=== PATIENT | female | born 2000 | race African-American/Black ===

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

== ENCOUNTER → 2019-04-29 07:59 | Outpatient (CLI) | payer OTHER, SELFPAY ==
--- NOTE | 2019-04-29 08:02 | RAD_ITS ---
PROCEDURE: SMALL BOWEL SERIES DATE OF EXAMINATION: April 29, 2019. INDICATION: Female, 18 years old. Intermittent bloody stool. PHYSICIAN: David Blanco M.D. FLUOROSCOPY TIME (if supplied): (0:13) minutes/seconds TECHNIQUE: Radiographic and fluoroscopic images were taken of the small intestine following the ingestion of barium. COMPARISON: None. FINDINGS: A preliminary supine KUB was obtained. There is an unremarkable bowel gas pattern. Fecal material is present throughout the colon. Phleboliths are present within the pelvis. The lung bases are unremarkable. The osseous structures are normal. The patient orally ingested approximately 12 ounces of thin barium Normal visualized fundus, body, and antrum of the stomach. Normal duodenal bulb, C-loop, and proximal jejunum. Normal visualized mucosal folds of the jejunum and ileum. There are no demonstrated dilatations, strictures, or masses of the small intestine. There is no mass displacement of the loops of small intestine. There is a normal motor pattern with barium reaching the colon within approximately 60 minutes. Spot films under fluoroscopic observation demonstrated a normal terminal ileum and ileocecal valve. RAD/Small Bowel Series Only IMPRESSION: Normal small bowel series. Electronically Signed: David Blanco, at 12:06 EST , Service support ,
== END ==
PROVIDERS: PCP Family Medicine; Referring Provider Nurse Practitioner Adult Health; Visit Provider Nurse Practitioner Adult Health
DX: K62.5 Hemorrhage of anus and rectum (principal); Z83.79 Family history of other diseases of the digestive system
CPT/HCPCS: 74250

== ENCOUNTER → 2019-05-01 15:05 | Outpatient (CLI) | payer OTHER, SELFPAY ==
[2019-05-01 14:37] VITALS: BMI 28.1
[2019-05-07 14:04] LABS: Calprotectin, Stool 181 ug/g (0-120)
== END ==
PROVIDERS: PCP Family Medicine; Referring Provider Surgery; Visit Provider Surgery
DX: K62.5 Hemorrhage of anus and rectum (principal); Z83.79 Family history of other diseases of the digestive system
CPT/HCPCS: 83993

== ENCOUNTER 2019-05-09 09:38 | Day surgery (SDC) | payer OTHER, SELFPAY ==
[2019-05-01 14:37] VITALS: BMI 28.1
--- NOTE | 2019-05-05 09:08 | HP_ITS ---
Intake Vital Signs 05/01/19 BMI 28.1 05/01/19 Height 5 ft 7 in 05/01/19 Weight: 200 lb 3 oz 05/01/19 BMI 31.3 05/01/19 BP 113/72 05/01/19 Blood Pressure Location Rt brachial 05/01/19 Position Sitting 05/01/19 Respiration 18 05/01/19 Pulse 60 05/01/19 Pulse Oximetry (%) 100 Intake Visit Reasons: blood in stool, referral from jae maynard Chief Complaint: rectal bleeding, fam hx crohns Consultant Internship Required: No Is patient in pain?: No Allergies No Known Allergies Allergy (Verified 05/01/19 14:36) Medications ferrous sulfate 325 mg (65 mg iron) tablet PO 05/01/19 [History Confirmed 05/01/19] polyethylene glycol 3350 17 gram/dose oral powder PO 05/01/19 [History Confirmed 05/01/19] Is last menstrual period known: No Post menopausal: No Patient : No PFSH Medical History (Updated 05/01/19 @ 14:34 by Abby Contreras) Blood in stool (Acute) Surgical History (Updated 05/01/19 @ 14:34 by Abby Contreras) History of tonsillectomy (Acute) Family History (Updated 05/01/19 @ 14:34 by Abby Contreras) Grandfather Colon cancer Grandmother Crohn disease Uncle Crohn disease Social History (Updated 05/05/19 @ 09:[address] Deepak Anguiano MD) Smoking Status: Never smoker HPI HPI HPI: CHANEL FELIX, is a 18 F who presents to the office today for HPI HPI Surgical H&P: Yes HPI: CHANEL FELIX, is a 18 F who presents to the office today for Colonoscopy. The patient was referred by GI from [facility]. The patient has been experiencing bloody stools and alternating constipation and diarrhea and she does have a family history of inflammatory bowel disease. She says that she has blood daily for the last 3 months and that for the last 3 years she has been having issues. She does have a history of C. difficile as well. ROS General General: No weight change, appetite, fatigue, colon cancer, breast cancer or weakness HEENT HEENT: No difficulty swallowing, eye injury, eye surgery, swollen glands or hoarseness Endo Endocrine: No thyroid disease, diabetes mellitus, thyroid cancer, Hair loss, heat intolerance or cold intolerance Cardio Cardiovascular: No murmur, pacemaker, heart disease, atrial fibrillation, high blood pressure, heart attack, heart stent, palpitations, shortness of breat with exertion or chest pain Resp Respiratory: No shortness of breath, No sleep apnea, No cough, No COPD, No asthma, No emphysema, No wheezing Gastro Gastrointestinal: No abdominal pain, No nausea or vomiting, No diarrhea, Yes constipation, Yes blood in stool, No acid reflux, No hemorrhoids, No ulcers, No gallbladder problem, No black,tarry stools Vinicio Hematologic: No blood thinners, No blood disorders, No bleeding, No anemia, No blood clots Neuro Neurologic: No weakness Exam Const General: cooperative Orientation: alert, oriented x3 Resp Effort & Inspection: normal respiratory effort Auscultation: clear to auscultation bilaterally Cardio Rate: regular rate Rhythm: regular rhythm Heart Sounds: no murmurs GI Inspection: non-distended Palpation: soft, nontender Assessment & Plan Problems 1. Bloody stool K92.1 Plan The patient is having bloody stools and does have a family history of inflammatory bowel disease. I did offer her colonoscopy but I stated that any further treatment would have to be done by a GI doctor. I also ordered a calprotectin stool study. I explained endoscopy in detail to the patient. I explained the risks including but not limited to stroke or heart attack with anesthesia, perforation of the GI tract, bleeding, infection. I explained that any of these could necessitate further emergency surgery. The patient understands and all questions were answered sufficiently. The patient wishes to proceed with procedure. Deepak Anguiano MD Pager: [facility] [address] [place] [address], [address] [place] [address] Office: Orders Orders: Calprotectin, Stool 05/01/19 K62.5, Z83.79 Colonoscopy Today K92.1 Coding Level of Care Code Off vis,new,level 3 Diagnoses Bloody stool K92.1 05/05/19 0908 <Electronically signed by Deepak mendiola MD> Date _ Deepak Anguiano MD I have re-examined the patient. There are no clinical changes since date of exam.
[2019-05-09] VITALS (7 sets, daily range): BP systolic 113–129; BP diastolic 55–79; PULSE 59–65; RESP 16; TEMP 36–36.9; O2SAT 100; BMI 30.9
--- NOTE | 2019-05-09 | IMM_PTH ---
PATIENT: CHANEL FELIX LOC: EN U#:[id number] AGE/SX: 18/F ROOM: RE05/09/[address]: Dr. Deepak Anguiano MD : 2000 BED: DIS: 05/09/2019 SPEC #: [id number] RECD: 05/12/19 12:04 STATUS: HUSSEIN RELes #: [id number] GABRIELLA: 05/09/19 00:[address]: Deepak Anguiano DEPT: IMMUNOHISTOCHEMISTRY RECD BY: Halima Morel ENTERED: 05/12/19 12:05 SP TYPE: IMMUNO OTHR DR: Dr. Ronnie Spencer MD Tissues: A - Ileum, NOS Procedures: BCL-2 (add) CD138 (add) CD20 (add) CD45 (add) CD5 (add) CD79A (add) CD3 (initial) PHYSICIAN & INSTITUTION [place] [id number] SPECIMEN INFORMATION: Tissue Source: A - Terminal ileum biopsy Clinical Info: Bloody stool Specimen Number: [id number] CPT code: 71857, 83968 x6 METHODOLOGY: Deparaffinized sections of prefer/formalin-fixed tissue or PAP/DQ stained slides are incubated with monoclonal/polyclonal antibodies/oligonucleotide probes. Localization is made via biotin free immunoperoxidase method. Appropriate controls are performed and reacted as expected. Results on target cell population are indicated in the following table: RESULTS: ANTIBODY / CLONE RESULT Block A CD3 (PS1) positive CD5 (SP10) positive CD20 (L26) positive CD79a (11E3) positive CD45 (RP2/18) positive CD138 (B-A38) negative BCL-2 (bcl-2/100/D5) negative These tests were developed and their performance characteristics determined by [facility]. They may not have been cleared or approved by the U.S. Food and Drug Administration. The FDA has determined that such clearance or approval is not necessary. The above immunohistochemical/dualISH markers are ordered and reviewed by the Pathologist. INTERPRETATION: A. Terminal ileum, biopsy: Polytypic (benign) lymphoid aggregate. AM:chase 05/13/19
[2019-05-09] MEDS: Lactated Ringers 1,000 ML 100 ML IV (10:39)
[2019-05-09 10:44] LABS: Internal QC Validated? YES +Cl - CLEAR BKGD; Pregnancy, Urine Negative Negative
--- NOTE | 2019-05-09 11:15 | COLBX_PTH ---
PATIENT: CHANEL FELIX LOC: EN U#:[id number] AGE/SX: 18/F ROOM: RE05/09/[address]: Dr. Deepak Anguiano MD : 2000 BED: DIS: 05/09/2019 SPEC #: [id number] RECD: 05/09/19 13:30 STATUS: HUSSEIN TAVO #: [id number] GABRIELLA: 05/09/19 11:[address]: Deepak Anguiano DEPT: SURGICAL PATHOLOGY RECD BY: Anamika Goldstein ENTERED: 05/09/19 14:15 SP TYPE: COLON BX OTHR DR: Dr. Ronnie Spencer MD Tissues: A - Ileum, NOS B - COLON BIOPSY C - Rectum, NOS Procedures: Surgery Specimen Level IV HEADER OPERATION: Colonoscopy (MAC) PRE-OP DIAGNOSIS: Bloody stool TISSUE SUBMITTED: A - Terminal ileum biopsy, B - Random colonic biopsy, C - Rectal biopsy MICROSCOPIC DIAGNOSIS A. Terminal ileum, biopsy: Prominent benign lymphoid aggregates. See comment. B. Colon, random biopsy: No pathologic change. C. Rectum, biopsy: Mild active colitis. See comment. AM:chase 05/12/19 COMMENT A. Immunohistochemistry ([id number]) supports the above diagnosis. C. Sections show scattered cryptitis, crypt abscesses and glandular distortion is not identified. Prominent lymphoid aggregates are present; however, transmural lymphoid aggregates are not seen. No fissuring ulcers are identified and no granulomas are noted. Clinical correlation is suggested. MICROSCOPIC DESCRIPTION Slides are reviewed. GROSS DESCRIPTION A - Received in fixative is one container labeled with the patient's name and designated terminal ileum. The specimen consists of multiple irregular fragments of light patrick soft tissue that in aggregate measure 1 x 0.8 x 0.1 cm. The specimen is totally submitted in one cassette. B - Received in fixative is one container labeled with the patient's name and designated random colon biopsy. The specimen consists of multiple irregular fragments of light patrick soft tissue that in aggregate measure 2 x 1 x <0.1 cm. The specimen is totally submitted in one cassette. C - Received in fixative is one container labeled with the patient's name and designated rectal biopsy. The specimen consists of multiple irregular fragments of light patrick soft tissue that in aggregate measure 1 x 1 x 0.1 cm. The specimen is totally submitted in one cassette. / AM:chase 05/09/19 TC:2 CPT: 04389 x3
--- NOTE | 2019-05-09 12:51 | OP.CCLET_ITS ---
05/09/2019 Melita Licea [address] [place] [address] Re : Colonoscopy procedure for Svetlana Anant Dear Dr. Licea This procedure was performed on Thursday, May 09, 2019. My impressions and recommendations are as follows: Impressions : - Ulcerated mucosa in the rectum. Biopsied. - Biopsies were taken with a cold forceps for histology in the entire colon and in the terminal ileum. Recommendations : - Discharge patient to home. - Resume previous diet. - Continue present medications. - Await pathology results. - Repeat colonoscopy for surveillance based on pathology results. My findings are described in the full procedure note, which is enclosed. If I can be of further assistance, please feel free to contact me at Doctor phone number(s): , Work: . Sincerely, Deepak Anguiano MD 05/09/2019 12:50:46 PM This report has been signed electronically.
--- NOTE | 2019-05-09 12:51 | OP.COLON_ITS ---
Patient Name: Svetlana Ny Procedure Date: 05/09/2019 12:17 PM Date of : 2000 Age: 18 Procedure: Colonoscopy Indications: Suspected Crohn's disease Providers: Deepak Anguiano MD Referring MD: Ronnie Spencer Medicines: Monitored Anesthesia Care Patient Profile: This is a 18 year old female. Refer to note in patient chart for documentation of history and physical. Last Colonoscopy: none. The patient's first colonoscopy is today. Complications: No immediate complications. Estimated blood loss: Minimal. Procedure: Pre-Anesthesia Assessment: - Prior to the procedure, a History and Physical was performed, and patient medications and allergies were reviewed. The patient's tolerance of previous anesthesia was also reviewed. The risks and benefits of the procedure and the sedation options and risks were discussed with the patient. All questions were answered, and informed consent was obtained. Prior Anticoagulants: The patient has taken no previous anticoagulant or antiplatelet agents. After reviewing the risks and benefits, the patient was deemed in satisfactory condition to undergo the procedure. After I obtained informed consent, the scope was passed under direct vision. Throughout the procedure, the patient's blood pressure, pulse, and oxygen saturations were monitored continuously. The pediatric colonoscope was introduced through the anus and advanced to the terminal ileum. The colonoscopy was performed without difficulty. The patient tolerated the procedure well. The quality of the bowel preparation was good. Scope In: 12:31:38 PM Scope Withdrawal Time 0 hours 8 minutes 39 seconds Scope Out: 12:47:02 PM Total Procedure Duration Time 0 hours 15 minutes 24 seconds Findings: A patchy area of mildly ulcerated mucosa was found in the rectum. Biopsies were taken with a cold forceps for histology. Biopsies were taken with a cold forceps in the entire colon and in the terminal ileum for histology. Impression: - Ulcerated mucosa in the rectum. Biopsied. - Biopsies were taken with a cold forceps for histology in the entire colon and in the terminal ileum. Recommendation: - Discharge patient to home. - Resume previous diet. - Continue present medications. - Await pathology results. - Repeat colonoscopy for surveillance based on pathology results. Procedure Code(s): --- Professional --- 58227, Colonoscopy, flexible; with biopsy, single or multiple Diagnosis Code(s): --- Professional --- K62.6, Ulcer of anus and rectum CPT copyright 2017 [employer]. All rights reserved. The codes documented in this report are preliminary and upon conventional underwriter review may be revised to meet current compliance requirements. Deepak Anguiano MD 05/09/2019 12:50:46 PM This report has been signed electronically. Number of Addenda: 0 Note Initiated On: 05/09/2019 12:17 PM
== END 2019-05-09 13:37 | disposition home or self-care (01) ==
LOC: EN 09:38 → AC 09:42
PROVIDERS: Anesthesiology; PCP Family Medicine; Referring Provider Family Medicine; Visit Provider Surgery
PROC: 0DJD8ZZ Inspection of Lower Intestinal Tract, Via Natural or Artificial Opening Endoscopic (ICD-10-PCS; CPT 45378; principal; 2019-05-09 11:10)
DX: K52.9 Noninfective gastroenteritis and colitis, unspecified (principal); K62.6 Ulcer of anus and rectum; K92.1 Melena; Z83.79 Family history of other diseases of the digestive system
CPT/HCPCS: 45380; 81025; 88305; 88341; 88342; J7120

== ENCOUNTER 2020-07-25 10:41 | Emergency (ER) | payer OTHER, SELFPAY ==
[2019-05-09 10:30] VITALS: BMI 30.9
[2020-07-25 10:42] VITALS: BP 133/69; PULSE 74; RESP 16; TEMP 35.7; O2SAT 99
--- NOTE | 2020-07-25 10:45 | RAD_ITS ---
STUDY: X-RAY - LEFT SHOULDER REASON FOR EXAM: Female, 20 years old. left shoulder pain TECHNIQUE: 4 view(s) of the shoulder. COMPARISON: None. FINDINGS: Normal glenohumeral articulation. Normal acromioclavicular joint. Normal acromion. Acute nondisplaced inferiorly and related the oblique fracture the midshaft left clavicle. Normal humeral head and visualized proximal humerus. The soft tissue structures are unremarkable. Normal visualized pulmonary apex. RAD/Shoulder min 2 Views IMPRESSION: Acute nondisplaced inferiorly angulated oblique fracture the midshaft left clavicle. Electronically Signed: Gilles Moon MD at 11:10 EDT Tel , Service support ,
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
--- NOTE | 2020-07-25 11:00 | RAD_ITS ---
STUDY: X-RAY - LEFT CLAVICLE REASON FOR EXAM: Female, 20 years old. FX TECHNIQUE: 2 view(s) of the clavicle. COMPARISON: None. FINDINGS: Acute nondisplaced inferiorly angulated oblique fracture the midshaft left clavicle. Normal acromioclavicular articulation. Normal visualized sternoclavicular articulation. Normal visualized pulmonary apex. RAD/Clavicle IMPRESSION: Acute nondisplaced inferiorly a dilated oblique fracture the midshaft left clavicle. Electronically Signed: Gilles Moon MD at 11:09 EDT Tel , Service support ,
[2020-07-25] MEDS: oxyCODONE 5 MG Tablet PO (11:14)
== END 2020-07-25 11:34 | disposition home or self-care (01) ==
LOC: ED 11:21
PROVIDERS: Emergency Provider Emergency Medicine; PCP Family Medicine
DX: S42.002A Fracture of unspecified part of left clavicle, initial encounter for closed fracture (principal); W19.XXXA Unspecified fall, initial encounter
CPT/HCPCS: 73000; 73030; 99283

== ENCOUNTER → 2021-11-08 | Outpatient (CLI) | payer OTHER, SELFPAY ==
[2021-11-08 16:22] LABS: Hematocrit 30.6 % (37-47); Hemoglobin 8.9 g/dL (12.0-15.0); Mean Corp Hgb Conc 29.1 g/dL (32-36); Mean Corpuscular Hgb 21.3 pg (27.0-32.0); Mean Corpuscular Volume 73.4 fL (81-99); Mean Platelet Vol. 10.1 fl (6.2-12.0); Platelet Count 321 K/mm3 (150-450); RBC Distribution Width CV 14.1 % (11.6-14.6); RBC Distribution Width SD 37.5 fl (35.1-43.9); Red Blood Count 4.17 M/mm3 (4.2-5.4); White Blood Count 8.2 K/mm3 (4.4-11.0)
[2021-11-08 16:26] LABS: Internal QC Validated? YES +Cl - CLEAR BKGD
[2021-11-08 16:27] LABS: Pregnancy, Urine Negative Negative
== END | disposition home or self-care (01) ==
LOC: LAB 15:51
PROVIDERS: PCP Family Medicine; Referring Provider Obstetrics & Gynecology; Visit Provider Obstetrics & Gynecology
DX: Z01.818 Encounter for other preprocedural examination (principal)
CPT/HCPCS: 36415; 81025; 85027

== ENCOUNTER 2021-11-10 09:55 | Day surgery (SDC) | payer OTHER, SELFPAY ==
--- NOTE | 2021-11-07 14:12 | HP.PCM_ITS ---
History and Physical Date of Admission: 11/10/21 HPI: The patient is a 21 year old female presenting for pre-operative visit. She is scheduled for laparoscopic right ovarian cystectomy, for 7 cm right ovarian cyst on 11/10/21. Procedure discussed along with risks, benefits and complications. Other alternatives discussed for management. Consent form signed? Yes. ? ? PAST MEDICAL HISTORY PAST MEDICAL HISTORY Diagnosis Date ? C. difficile colitis ? ? PMH - PAST MEDICAL HISTORY OF 11/25/2007 ? Normal Color Vision ? Ulcerative proctitis (HCC) ? ? ? PAST SURGICAL HISTORY PAST SURGICAL HISTORY Procedure Laterality Date ? COLONOSCOPY ? 03/15/2021 ? COLONOSCOPY GEN ANES ? 05/09/2019 ? SIGMOIDOSCOPY ? 04/19/2020 ? TONSILLECTOMY HX ? CURRENT MEDICATIONS Current Outpatient Medications Medication Sig Dispense Refill ? ferrous sulfate (SLOW FE) 140 mg (45 mg iron) TbER 45 mg. (Patient not taking: Reported on 11/02/2021 ) ? ? ? No current facility-administered medications for this visit. ? ? ALLERGIES: Environmental Allergies [Other] and Percocet [Oxycodone- Acetaminophen] ? PERSONAL HISTORY: SOCIAL HISTORY Social History ? Tobacco Use ? Smoking status: Passive Smoke Exposure - Never Smoker ? Smokeless tobacco: Never Used ? Tobacco comment: mom smokes outside Vaping Use ? Vaping Use: Never used Substance Use Topics ? Alcohol use: No ? Drug use: No ? FAMILY HISTORY: FAMILY HISTORY FAMILY HISTORY Problem Relation Age of Onset ? None Mother ? ? None Father ? ? None Maternal Grandmother ? ? other (Crohn's Disease) Maternal Grandmother ? ? Cancer Maternal Grandfather ? ? colon/liver ? other (Crohn's Disease) Maternal Grandfather ? ? None Paternal Grandmother ? ? other (Unknown) Paternal Grandfather ? ? Asthma Maternal Aunt ? ? other (Crohn's Disease) Maternal Uncle ? ? ? REVIEW OF SYMPTOMS: GENERAL: denies fevers or chills ENDOCRINOLOGY: has not been on steroids Cardiology : denies palpitations or chest pain Respiratory: denies SOB or cough Hematology: denies history of prolonged bleeding or easy bruising or VTE Allergy: Denies history of personal or family history of allergy to anesthesia ? PHYSICAL EXAMINATION: ? VITALS: Weight 180 lb (81.6 kg), last menstrual period 10/20/2021. ? GENERAL: The patient is well nourished, well hydrated in no acute distress. , The patient is oriented to time, place, and person. NECK: Supple. No lynphadenopathy, normal thyroid, no thyromegaly. LUNGS: Clear to auscultation bilaterally. no wheezes, rhonchi or rales HEART: Regular rate and rhythm, Normal heart sounds and No murmurs or gallops ? IMPRESSION: right ovarian cyst ? PLAN: The risks/benefits/alternatives and personal involved for the planned laparoscopic right ovarian cystectomy were reviewed with the patient. Her questions were answered to her satisfaction and she desires to proceed. Consent was signed. I reviewed with her postop instructions and expectations. ? ? I have reviewed and updated past medical and surgical history, medications and allergies Assessment & Plan Assessment/Plan (1) RLQ abdominal pain: (2) Right ovarian cyst:
[2021-11-10] VITALS (8 sets, daily range): BP systolic 112–130; BP diastolic 67–82; PULSE 51–84; RESP 16; TEMP 36.6–37.6; O2SAT 99–100; BMI 27.8
[2021-11-10] MEDS: Acetaminophen 500 MG Tablet 1000 MG PO (10:23)
[2021-11-10] MEDS: Gabapentin 100 MG Capsule 200 MG PO (10:23)
[2021-11-10] MEDS: Celecoxib 200 MG Capsule 400 MG PO (10:23)
[2021-11-10] MEDS: Lactated Ringers 1,000 ML 15 ML IV (10:23)
[2021-11-10 10:24] LABS: Internal QC Validated? YES +Cl - CLEAR BKGD; Pregnancy, Urine Negative Negative
[2021-11-10 10:30] LABS: Hematocrit 35.2 % (37-47); Hemoglobin 10.2 g/dL (12.0-15.0); Mean Corpuscular Hgb 21.2 pg (27.0-32.0); Platelet Count 337 K/mm3 (150-450); RBC Distribution Width CV 13.9 % (11.6-14.6); RBC Distribution Width SD 36.8 fl (35.1-43.9); Red Blood Count 4.82 M/mm3 (4.2-5.4); White Blood Count 5.8 K/mm3 (4.4-11.0)
[2021-11-10] MEDS: Bupivacaine 0.25% 30 ML Vial (10:53)
--- NOTE | 2021-11-10 11:14 | DCINST_ITS ---
Discharge Instructions Diet Discharge Diet: Light diet - advance as tolerated Activity Discharge Activity: May Drive (in 1-3 days when pain medication is not needed), May Shower (tomorrow) and May Take a Tub Bath (in 3-5 days) May resume sexual activity in: 1 week Lifting Restrictions: 15 lbs for 3-4 days Dressing / Incision Call your doctor if your incision/area has: Sudden Increased Bleeding, Increased Pain/ Swelling, Increased Redness and Foul Smelling Discharge Call your doctor if you observe: Fever of 101 or Higher Cleanse incision/area with: Soap & Water (Your incisions have skin glue. Leave it on for 10 days or until it falls off. It can get wet) Follow Up Care Please Follow Up With: Katharine La MD When: as needed or as scheduled. Test Results: Test results from this visit will be discussed in further detail at your follow- up appointment, if applicable. Discharge Plan Admission Primary Reason for Your Visit: Laparoscopy for ovarian cyst Attending Provider: Katharine La Primary Care Provider: Ronnie Spencer Discharge Orders/Prescriptions Prescriptions: No Action NK Referrals / Follow Up: Ronnie Spencer MD [Primary Care Provider] - Disposition Disposition (needs filled in before D/C Order can be placed): Home, Self Care
--- NOTE | 2021-11-10 11:36 | OP.PCM_ITS ---
Problems Associated Problem List Diagnoses (1) RLQ abdominal pain: (2) Right ovarian cyst: Report of Operation Date of Procedure: 11/10/21 Pre-Operative Diagnosis: RLQ pain, right ovarian cyst Post-Operative Diagnosis: resolved right ovarian cyst, uterine fibroid Surgery/Procedure Performed:: diagnostic laparoscoy Description of Surgical Findings:: normal tubes and ovaries and peritoneal cavity. Enlarged uterus w/ large fundal fibroid Surgeon: Katharine La senior brand manager: Geraldine Rivera senior brand manager: Yeimi SHUKLA Type of Anesthesia: General Anesthesiologist: Farzana Sims Special Medications: none Specimen's removed: none Drains: none Estimated Blood Loss (mL): 5 Fluids Replaced: 800 Description of Procedure: Was taken the operating room where she was prepped draped in dorsolithotomy position. Legs were placed in the yellowfin stirrups. Her arms were tucked at her sides. Care was taken to make sure she was in a neurologically safe in neutral position. The weighted speculum is placed in the vagina and the anterior lip of the cervix was grasped with a tenaculum. It was very stenotic and I was unable to dilated easily even with small dilators. Therefore the Conn cannula uterine manipulator was attached to the tenaculum and the weighted speculum was removed. The anterior abdominal wall was tented up with towel clamps and the subcutaneous tissue was infiltrated with half percent Marcaine. 5 mm intraumbilical incision was made and the bladeless trocar and sleeve direct inserted into the peritoneal cavity with the Visiport. Intraperitoneal placement was confirmed patient was placed in Trendelenburg as the pneumoperitoneum was created. Right lateral port was placed lateral to the inferior epigastric vessels. The peritoneal cavity was examined. There is a large fibroid distorting the left cornua and lateral uterus. Normal-appearing tubes and ovaries bilaterally. There is actually a small 2 cm left ovarian cyst that appeared simple and was left in situ. There is no evidence of endometriosis on the peritoneal surfaces. The appendix was visualized and was normal. The liver was visualized and was normal. There were no other significant intraperitoneal adhesions. Lateral port was then removed under direct visualization. The pneumoperitoneum was released. The ovarian cyst of concern must of ruptured prior to the surgery. There was a moderate amount of straw-colored fluid in the pelvis. Care was taken to release as much of the pneumoperitoneum was possible for the last port was removed. The skin was closed in a subcuticular fashion by the assistance while I was present in the operating suite. The rest of the procedure was performed by me. There were no qualified residents available. Dr. Shukla provided tissue manipulation and camera manipulation during the surgery. The vaginal instruments were removed by me and a vaginal sweep was completed. Sponge and needle counts were correct and the patient was taken the recovery room in a stable condition. Grafts/Implants Used: none Procedure Start Time: 11:19 Procedure Stop Time: 11:38 Complications none Admit VTE Documentation VTE Present on Admission: No VTE Mechan Device Prophylaxis: SCD's VTE Pharm Prophylaxis ordered?: No Reason prophylaxis not ordered:: Procedure Not Indicated
[2021-11-10] MEDS: traMADol 50 MG Tablet PO (13:45)
== END 2021-11-10 14:33 | disposition home or self-care (01) ==
LOC: SDC 09:59 → AC 10:00
PROVIDERS: PCP Family Medicine; Referring Provider Obstetrics & Gynecology; Visit Provider Obstetrics & Gynecology
DX: D25.9 Leiomyoma of uterus, unspecified (principal); N83.202 Unspecified ovarian cyst, left side
CPT/HCPCS: 49320; 00840; 81025; 85027; J7120; J2405

== ENCOUNTER 2022-09-27 11:49 | Emergency (ER) | payer OTHER, SELFPAY ==
[2022-09-27 11:50] VITALS: BP 127/85; PULSE 61; RESP 18; TEMP 36; O2SAT 100; BMI 26.4
--- NOTE | 2022-09-27 12:08 | VDLE_ITS ---
Reason For Study: LLE pain RIGHT LEFT CFV is compressible, spontaneous, phasic, GSV is normal. competent and demonstrates normal CFV is compressible, spontaneous, phasic, augmentation. competent, and demonstrates normal Procedure augmentation. This is a venous duplex using B-mode, color FV is compressible, spontaneous, phasic, flow and spectral Doppler. competent and demonstrates normal Exam performed portable in ED. augmentation. A preliminary report was called and/or faxed POP V is compressible, spontaneous, phasic, to ED @ 12:50 pm. competent and demonstrates normal augmentation. T/P Trunk is compressible. PTV is compressible. LT PerV is compressible. VL/Venous Duplex US, Unilateral Interpretation Summary Deep veins of the left lower extremity are patent and compressible segmentally. There is no evidence of left lower extremity deep vein thrombosis. The left great saphenous vein kendra ears patent and compressible segmentally. Ordering Physician: Trevor Castro Referring Physician: Ronnie Spencer Performed By: Bess Sanchez RDCS, RVT
--- NOTE | 2022-09-27 12:29 | ED.VIS.LOWEX ---
HPI History of Present Illness Chief Complaint: Lower Extremity Injury Informant: patient and parent Narrative Narrative: Nontraumatic left calf pain progress over 3 days. Was walking on treadmill and felt mild symptoms there was no running no jumping. No pain in the thigh no chest pains or shortness of breath no recent travel or surgeries. No history of PE or DVT. Took ibuprofen yesterday no relief. No history of similar. No past medical history. Prior similar symptoms: No PFSH PFSH Medical History Anemia Blood in stool Non-smoker Proctitis Wears glasses Home Medications ibuprofen 600 mg tablet 600 mg PO Q6H PRN PRN Pain Score 4-10 10 days #30 tabs 11/10/21 [Rx Last Taken Unknown] Allergy/AdvReac Type Severity Reaction Status Date / Time oxycodone Allergy Itching Verified 11/10/21 10:18 Seasonal Allergies: Uncoded Allergy Itching Verified 11/10/21 10:18 [environmental] Family History Grandfather Colon cancer Grandmother Crohn disease Uncle Crohn disease Surgical History History of tonsillectomy Hx of colonoscopy Social History Smoking Status: Never smoker ROS ROS ED Constitutional Constitutional ED: Denies chills, fever(s) or sweats Eyes Eyes: Denies change in vision ENT ENT ED: Denies dysphagia or sore throat Cardiovascular Cardiovascular: Denies chest pain, leg edema, palpitations or racing heartbeat Respiratory/Chest Respiratory/Chest: Denies cough, dyspnea or dyspnea on exertion Gastrointestinal Gastrointestinal: Denies abdominal pain, diarrhea, nausea or vomiting Genitourinary Genitourinary ED: Denies dysuria, hematuria or urinary frequency Musculoskeletal Musculoskeletal: Reports extremity pain; Denies back pain or neck pain Integumentary Denies rash or wounds Neurologic Neurologic: Denies headache(s), paresthesias or weakness EXAM Physical Exam Const Vital Signs: 09/27/22 11:50 Temperature 96.8 F L Temperature Source Temporal Pulse Rate 61 Respiratory Rate 18 Blood Pressure 127/85 H Blood Pressure Mean 99 Pulse Ox 100 Oxygen Delivery Method Room Air Positive well nourished and well developed General Appearance ED: well developed and NAD HEENT Reports moist mucous membranes normocephalic and atraumatic Eyes PERRL, EOMs intact bilaterally and conjunctivae normal General Eye ED: Yes normal appearance of both eyes Neck no lymphadenopathy and supple General: Negative for tenderness Chest Wall Chest: Negative for tenderness Resp normal respiratory effort and normal air movement Effort and Inspection: symmetric chest movement; Negative for respiratory distress Cardio regular rate, regular rhythm and no murmurs Peripheral Pulses: pulses 2+ throughout GI normal to inspection, nondistended, normoactive bowel sounds and non-tender Palpation: Negative for guarding or rebound tenderness present Back/Spine no CVA tenderness and no thoracic nor lumbar tenderness Extremity Extremity Narrative: Left lower extremity: Tenderness along the posterior calf at the popliteal. No medial thigh tenderness. Soft compartments. Distal pulses intact. General Extremety ED: Negative for edema or tenderness General Extremity: Negative for edema Neuro oriented x3 and no sensory deficits noted Sensorium / Orientation: awake and alert Skin no rashes or lesions noted and no wounds MDM MDM MDM Narrative Medical decision making narrative: Interventions / MDM: Differential diagnosis: Calf strain, DVT Diagnosis considered but do not suspect: N/A My EKG interpretation: N/A Imaging independently reviewed and interpreted by myself: N/A External documents reviewed: N/A Test considered but not ordered:N/A ED course: Patient declined any medications. Left leg ultrasound negative. Collin wrap crutches provided. Discussed continue Motrin every 6 hours for the next 2 days then as needed. Follow-up with her doctor. All questions were answered. Re-evaluation: stable Disposition discussed with patient/family/significant other: Patient and mother Case discussed with consulting clinician: N/A This note was generated with [employer] dictation software. It may contain incorrect words, spelling, and punctuation that were not noted in checking the note before signing. Discharge Plan Triage Chief Complaint: Lower Extremity Injury ED Provider: Trevor Castro Dx/Rx/DC Orders Clinical Impression: Strain of left calf muscle Instructions: ED Muscle Strain, Extremity Prescriptions: No Action ibuprofen 600 mg Tablet 600 mg PO Q6H PRN PRN (Reason: Pain Score 4-10) 10 Days Qty: 30 0RF Primary Care Provider: Ronnie Spencer Referrals: Ronnie Spencer MD [Primary Care Provider] - 1 Week if not improving Activity Restrictions/Additional Instructions: Left leg negative for DVT. Continue Motrin 600 mg every 6 hours for next 2 days then as needed. Collin wrap and crutches as needed. Weight-bear as tolerated. Follow-up with your doctor if symptoms not improved. Disposition Disposition: Home, Self Care
[2022-09-27 13:37] VITALS: RESP 16
== END 2022-09-27 13:41 | disposition home or self-care (01) ==
PROVIDERS: Emergency Provider Emergency Medicine; PCP Family Medicine; Visit Provider Emergency Medicine
DX: S86.112A Strain of other muscle(s) and tendon(s) of posterior muscle group at lower leg level, left leg, initial encounter (principal); X58.XXXA Exposure to other specified factors, initial encounter
CPT/HCPCS: 93971; 99283